=== PATIENT | male | born 1960 | race Hispanic/Latino ===

== ENCOUNTER 2018-03-05 23:45 | Emergency (ER) | payer OTHER ==
[~2018-03-05] VITALS: Ht 167.6 cm; Wt 75.0 kg
[2018-03-06 00:32] LABS: HEMATOCRIT 43.6 % (39.0-50.0); HEMOGLOBIN 15.5 g/dl (14.0-18.0); IMMATURE GRANULOCYTES 0.3 % (0.0-5.0); MEAN CELL VOLUME 87.7 fL CALC (80.0-100.0); MEAN CORPUSCULAR HGB 31.2 pG CALC (26.0-32.0); MEAN CORPUSCULAR HGB CONC 35.6 g/L CALC (32.0-36.0); PLATELET COUNT 205 thou/uL (130-400); RED BLOOD COUNT 4.97 mill/uL (4.70-6.10); RED CELL DISTRI WIDTH 12.2 % (11.5-15.5)
[2018-03-06 00:43] LABS: MANUAL DIFFERENTIAL YES
[2018-03-06 00:46] LABS: ALBUMIN 3.7 g/dL (3.2-5.0); ALKALINE PHOSPHATASE 69 u/l (38-126); ANION GAP 13 (6-22 (CALC)); BILIRUBIN, TOTAL 0.8 mg/dL (0.0-1.4); BUN 10 mg/dL (9-20); BUN/CREATININE RATIO 16 (12-20 (CALC)); CARBON DIOXIDE 26 mmol/l (22-30); CHLORIDE 96 mmol/l (95-108); CREATININE 0.6 mg/dL (0.7-1.3); GFR > 60 ML/MIN (>=60 (CALC)); GFR FOR AFR.AMER. > 60 ML/MIN (>=60 (CALC)); POTASSIUM 4.2 mmol/l (3.5-5.1); SGOT/AST 32 u/l (17-59); SODIUM 131 mmol/l (137-146); TOTAL PROTEIN 6.8 g/dL (6.3-8.2)
[2018-03-06 00:53] LABS: INFLUENZA A NONE DETECTED (NONE DETECT); INFLUENZA B NONE DETECTED (NONE DETECT)
[2018-03-06] MEDS ORDERED: CLARITHROMYC500 M2 PO (00:59)
[2018-03-06 01:22] VITALS: BP 119/73
== END 2018-03-06 01:22 | disposition home or self-care (01) | DRG 195 ==
LOC: ED 23:45
PROVIDERS: Family Medicine
DX: J18.9 Pneumonia, unspecified organism (principal); R50.9 Fever, unspecified

== ENCOUNTER 2018-03-09 14:46 | Inpatient (IN) | payer OTHER ==
[~2018-03-09] VITALS: Ht 167.6 cm; Wt 74.1 kg
[~2018-03-09 14:46] MED LIST: CLARITHROMYC500 M2 PO
--- NOTE | 2018-03-09 14:53 | NUR ---
AMBULATORY WITH STEADY GAIT TO ER ROOM 2, TO BED
--- NOTE | 2018-03-09 15:15 | NUR ---
Pt moved to room # 6 for higher level of care. Report to GUILLE Joshua
--- NOTE | 2018-03-09 15:20 | NUR ---
RECEIVED REPORT FROM SUSY ENAMORADO. INTRODUCED SELF TO PT AND PERFORMED ASSESSMENT. PT WARM TO TOUCH.
--- NOTE | 2018-03-09 15:54 | NUR ---
IV ABX AND IV FLUIDS INITIATED. TEMP RECHECK 102.5
[2018-03-09 15:57] LABS: HEMATOCRIT 41.3 % (39.0-50.0); HEMOGLOBIN 14.6 g/dl (14.0-18.0); IMMATURE GRANULOCYTES 1.5 % (0.0-5.0); MEAN CELL VOLUME 87.3 fL CALC (80.0-100.0); MEAN CORPUSCULAR HGB 30.9 pG CALC (26.0-32.0); MEAN CORPUSCULAR HGB CONC 35.4 g/L CALC (32.0-36.0); NEUT# 10.59 thou/uL (1.82-7.42); RED BLOOD COUNT 4.73 mill/uL (4.70-6.10)
[2018-03-09 16:17] LABS: INFLUENZA B NONE DETECTED (NONE DETECT)
[2018-03-09 16:19] LABS: ANION GAP 15 (6-22 (CALC)); BUN 10 mg/dL (9-20); BUN/CREATININE RATIO 17 (12-20 (CALC)); CARBON DIOXIDE 27 mmol/l (22-30); CHLORIDE 100 mmol/l (95-108); CREATININE 0.6 mg/dL (0.7-1.3); GFR > 60 ML/MIN (>=60 (CALC)); GFR FOR AFR.AMER. > 60 ML/MIN (>=60 (CALC)); POTASSIUM 4.5 mmol/l (3.5-5.1); SODIUM 137 mmol/l (137-146)
--- NOTE | 2018-03-09 16:50 | NUR ---
DR HAJI AT BEDSIDE TO DISCUSS RESULTS AND PLAN TO ADMIT
--- NOTE | 2018-03-09 17:45 | NUR ---
ATTEMPTED TO CALL REPORT, NURSE BUSY. SAVITA FERRER SAID SHE WOULD CALL BACK.
--- NOTE | 2018-03-09 18:15 | NUR ---
REPORT TO SUSY HUNTER AT [facility].
--- NOTE | 2018-03-09 18:15 | NUR ---
Admission Note Report Given to: SBAR PRINTED TO FLOOR Transported by: Wheelchair X Stretcher Transported with: X Nurse X Transporter X Patent IV O2 Dye Feeder
--- NOTE | 2018-03-09 18:17 | NUR ---
PT ARRIVED ON FLOOR AT 1816; VIA STRETCHER; ACCOMPANIED BY TWO STAFF MEMBERS; PT AMBULATED FROM STRETCHER TO DIGITAL STANDING SCALE WITH STEADY GAIT. WEIGHT OBTAINED; VITALS STABLE; O2 @ 3L; PT ORIENT TO ROOM AND CALL QUIROS SYSTEM; PT FAROESE SPEAKING, NODS HIS HEAD WHEN I SPEAK; NO S/S OF DISTRESS NOTED; AT BEDSIDE; I ASKED IF SHE WILL SPEND NIGHT AT HOSP OR GOING HOME, SHE POINTED TO THE COUCH. WILL GET HER BLANKETS AND A PILLOW.
--- NOTE | 2018-03-09 19:00 | NUR ---
RECEIVED REPORT FROM DAY NURSE. PT RESTING IN BED WITH AT BEDSIDE. PT IS ANGUILLAN SPEAKING ONLY. NO S/S OF DISTRESS NOTED. WILL CONTINUE TO MONITOR.
[2018-03-09 19:04] VITALS: BP 128/73
--- NOTE | 2018-03-09 20:10 | NUR ---
PT RESTING IN BED WITH AT BEDSIDE. PT IS CROATIAN SPEAKING ONLY AND SO IS THE . ASSESMENT COMPLETED AT THIS TIME(SEE INTERVENTIONS) LUNG SOUNDS CLEAR WITH DIMINISHED BASES, HEART SOUNDS NORMAL, BOWEL SOUNDS ACTIVE. NO EDEMA NOTED. #20 LAC FLUSHES WELL, NO SWELLING OR REDNESS. MANE STAFF MEMBER IN TO TRANSLATE AT THIS TIME. PT VOICING NO COMPLAINTS PLAN OF CARE DISCUSSED. PT APPRECIATIVE AND VERBALIZES UNDERSTANDING. CALL QUIROS IN REACH. WILL CONTINUE TO MONITOR.
--- NOTE | 2018-03-10 | NUR ---
PT RESTING IN BED WITH EYES CLOSED. AT BED SIDE. NO S/S OF DISTRESS. CALL QUIROS IN REACH. WILL CONTINUE TO MONITOR.
[2018-03-10 04:00] VITALS: BP 120/70
--- NOTE | 2018-03-10 04:00 | NUR ---
PT CONTINUES TO REST WITH EYS CLOSED. NO S/S OF DISTRESS NOTED. CALL QUIROS IN REACH. WILL CONTINUE TO MONITOR.
[2018-03-10 05:20] LABS: HEMATOCRIT 40.6 % (39.0-50.0); HEMOGLOBIN 13.9 g/dl (14.0-18.0); IMMATURE GRANULOCYTES 1.2 % (0.0-5.0); MEAN CELL VOLUME 89.4 fL CALC (80.0-100.0); MEAN CORPUSCULAR HGB 30.6 pG CALC (26.0-32.0); MEAN CORPUSCULAR HGB CONC 34.2 g/L CALC (32.0-36.0); NEUT# 10.62 thou/uL (1.82-7.42); RED BLOOD COUNT 4.54 mill/uL (4.70-6.10); RED CELL DISTRI WIDTH 12.3 % (11.5-15.5)
[2018-03-10 05:31] LABS: ALBUMIN 3.2 g/dL (3.2-5.0); ALKALINE PHOSPHATASE 64 u/l (38-126); ANION GAP 12 (6-22 (CALC)); BILIRUBIN, TOTAL 0.7 mg/dL (0.0-1.4); BUN 9 mg/dL (9-20); BUN/CREATININE RATIO 14 (12-20 (CALC)); CARBON DIOXIDE 26 mmol/l (22-30); CHLORIDE 105 mmol/l (95-108); CREATININE 0.6 mg/dL (0.7-1.3); GFR > 60 ML/MIN (>=60 (CALC)); GFR FOR AFR.AMER. > 60 ML/MIN (>=60 (CALC)); MAGNESIUM 1.9 mg/dL (1.6-2.3); POTASSIUM 4.5 mmol/l (3.5-5.1); SGOT/AST 20 u/l (17-59); SODIUM 138 mmol/l (137-146); TOTAL PROTEIN 6.4 g/dL (6.3-8.2)
[2018-03-10 08:33] VITALS: BP 116/68
[2018-03-10 10:17] LABS: URINE BILIRUBIN - DIPSTICK NEGATIVE (NEGATIVE); URINE BLOOD DIPSTICK NEGATIVE (NEGATIVE); URINE CLARITY CLEAR; URINE COLOR YELLOW; URINE GLUCOSE - DIPSTICK NEGATIVE (NEGATIVE); URINE KETONE 15 mg/dL (NEGATIVE); URINE LEUK ESTERASE NEGATIVE (NEGATIVE); URINE NITRITE - DIPSTICK NEGATIVE (Negative); URINE PROTEIN - DIPSTICK NEGATIVE (NEG-TRACE); URINE SPECIFIC GRAVITY >=1.030
--- NOTE | 2018-03-10 12:00 | NUR ---
OFF UNIT TO CT AFTER INFORMING OF PROCEDURE, RETURNED TO UNIT WITH CLEARING HAND AND SETTLED IN BED.
[2018-03-10 13:19] LABS: TSH, 3RD GENERATION 0.57 uIU/mL (0.47 - 4.68)
--- NOTE | 2018-03-10 16:00 | NUR ---
ALL NEEDS MET, SPOUSE SITTING IN ROOM.
[2018-03-10 16:53] VITALS: BP 139/73
[2018-03-10 19:20] VITALS: BP 149/73
--- NOTE | 2018-03-10 19:30 | NUR ---
PT IN BED UPRIGHT W/FAMILY AT BEDSIDE X6. V/S ASSESSED. NO S/S OF DISTRESS NOTED. CALL LIGHT W/IN REACH AND PT INSTRUCTED TO CALL IF ANY NEEDS ARISE.
--- NOTE | 2018-03-10 20:02 | NUR ---
PT RESTING QUIETLY IN BED. FAMILY AT BEDSIDE. ASSESMENT COMPLETED AT THIS TIME(SEE INTERVENTIONS) LUNG SOUNDS DIMINISHED IN THE BASES, HEART SOUNDS NORMAL, BOWEL SOUNDS ACTIVE, NO SWELLING OR EDEMA NOTED. #20 LAC FLUSHES WELL, NO SWELLING OR EDEMA NOTED. PTS NEEDS MET FAMILY MEMBER AT BEDSIDE TO TRANSLATE. OXEGEN @ 2L VIA NASAL CANULA. CALL QUIROS IN REACH. WILL CONTINUE TO MONITOR.
--- NOTE | 2018-03-10 23:29 | NUR ---
PT MEDICATED W/IV ANTIBIOTIC THERAPY AT THIS TIME. PT HAS DRY COUGH. AT BEDSIDE. NO S/S OF DISTRESS, PT ASISTED IN RAISING HOB FOR COUGH. DENIES ANY OTHER NEEDS AT THIS TIME. CALL LIGHT AT BEDSIDE AND LIGHTS TURNED BACK DOWN.
--- NOTE | 2018-03-11 04:00 | NUR ---
PT RESTING QUIETLY IN BED. AT BEDSIDE. NO S/S OF DISTRESS. O2 @ 2L. CALL QUIROS IN REACH. WILL CONTINUE TO MONITOR.
[2018-03-11 05:31] LABS: HEMATOCRIT 39.9 % (39.0-50.0); HEMOGLOBIN 13.8 g/dl (14.0-18.0); IMMATURE GRANULOCYTES 2.7 % (0.0-5.0); MEAN CELL VOLUME 88.7 fL CALC (80.0-100.0); MEAN CORPUSCULAR HGB 30.7 pG CALC (26.0-32.0); MEAN CORPUSCULAR HGB CONC 34.6 g/L CALC (32.0-36.0); NEUT# 12.03 thou/uL (1.82-7.42); RED BLOOD COUNT 4.5 mill/uL (4.70-6.10); RED CELL DISTRI WIDTH 12.4 % (11.5-15.5)
[2018-03-11 06:01] LABS: ALBUMIN 3.4 g/dL (3.2-5.0); ALKALINE PHOSPHATASE 73 u/l (38-126); ANION GAP 15 (6-22 (CALC)); BILIRUBIN, TOTAL 0.5 mg/dL (0.0-1.4); BUN 10 mg/dL (9-20); BUN/CREATININE RATIO 18 (12-20 (CALC)); CALCULATED LDLCHOLESTEROL 71 mg/dL (62-129 (CALC)); CARBON DIOXIDE 25 mmol/l (22-30); CHLORIDE 103 mmol/l (95-108); CHOLESTEROL HDL RATIO 4.1 (<4.4 (CALC)); CREATININE 0.6 mg/dL (0.7-1.3); GFR > 60 ML/MIN (>=60 (CALC)); GFR FOR AFR.AMER. > 60 ML/MIN (>=60 (CALC)); HDL CHOLESTEROL 28 mg/dL (>=40); POTASSIUM 4.6 mmol/l (3.5-5.1); SGOT/AST 19 u/l (17-59); SODIUM 139 mmol/l (137-146); TOTAL CHOLESTEROL 114 mg/dl (0-199); TOTAL PROTEIN 6.8 g/dL (6.3-8.2); TOTAL TRIGLYCERIDES 73 mg/dl (30-149); VLDL CHOLESTROL 15 mg/dl (8-62 (CALC))
--- NOTE | 2018-03-11 07:00 | NUR ---
SHIFT CHANGE REPORT FROM GERMAINE, PT AWAKE, ALERT AND ORIENTED SITTING UP AT BEDSIDE, REPORTED HE HAD CHEST PAIN THIS AM BUT DIDNT INFORM NURSE. THERE IS A LANGUAGE BARRIER AND ASSISTANT WAREHOUSE MANAGER WAS CALLED IN FOR ASSISTANCE, ADVISED/REMINDED TO USE CALL QUIROS FOR ASSISTANCE NEEDED, WILL CONTINUE TO MINITOR.
--- NOTE | 2018-03-11 13:12 | NUR ---
SITTING UP IN ROOM, EDUCATED ON DIABETES, FAMILY VISITING, ALL NEEDS ADDRESSED.
[2018-03-11 16:09] VITALS: BP 133/71
[2018-03-11 19:24] VITALS: BP 152/78
--- NOTE | 2018-03-11 20:03 | NUR ---
REPORT RECIEVED FROM OFF GOING NURSE. PT RESTING IN BED WITH EYES OPEN. FAMILY AT BEDSIDE. NO PAIN OR DISTRESS NOTED. POC DISCUSSED. PT VOICED UNDERSTADNING. BED IN LOWEST POSITION. CALL LIGHT WITHIN REACH. WILL MONITOR.
[2018-03-12 04:01] VITALS: BP 139/76
[2018-03-12 05:13] LABS: HEMOGLOBIN 13.4 g/dl (14.0-18.0); IMMATURE GRANULOCYTES 2.9 % (0.0-5.0); MEAN CELL VOLUME 89.2 fL CALC (80.0-100.0); MEAN CORPUSCULAR HGB 30.7 pG CALC (26.0-32.0); MEAN CORPUSCULAR HGB CONC 34.4 g/L CALC (32.0-36.0); NEUT# 16.85 thou/uL (1.82-7.42); RED BLOOD COUNT 4.37 mill/uL (4.70-6.10); RED CELL DISTRI WIDTH 12.6 % (11.5-15.5)
[2018-03-12 05:33] LABS: ALBUMIN 3.2 g/dL (3.2-5.0); ALKALINE PHOSPHATASE 76 u/l (38-126); ANION GAP 15 (6-22 (CALC)); BILIRUBIN, TOTAL 0.4 mg/dL (0.0-1.4); BUN 12 mg/dL (9-20); BUN/CREATININE RATIO 22 (12-20 (CALC)); CARBON DIOXIDE 27 mmol/l (22-30); CHLORIDE 100 mmol/l (95-108); CREATININE 0.6 mg/dL (0.7-1.3); GFR > 60 ML/MIN (>=60 (CALC)); GFR FOR AFR.AMER. > 60 ML/MIN (>=60 (CALC)); POTASSIUM 4.5 mmol/l (3.5-5.1); SGOT/AST 24 u/l (17-59); SODIUM 137 mmol/l (137-146); TOTAL PROTEIN 6.4 g/dL (6.3-8.2)
--- NOTE | 2018-03-12 06:49 | NUR ---
CRITICAL P02 OF [address] MANTILLA. NO ORDERS RECIEVED. PT O2 STAT 91%. PT NON LABORED BREATHING. O2 NC @2L. WILL MONITOR.
--- NOTE | 2018-03-12 07:00 | NUR ---
SHIFT CHANGE REPORT, PT AWAKE ALERT AND ORIENTED, NO C/O DISCOMFORT, CALL QUIROS IN REACH.
[2018-03-12 08:37] VITALS: BP 132/74
[2018-03-12 16:00] VITALS: BP 157/72
--- NOTE | 2018-03-12 16:13 | NUR ---
RELAXING IN BED, COMFORTABLE, ALL NEEDS MET.
[2018-03-12 18:58] VITALS: BP 138/75
[2018-03-13 04:30] VITALS: BP 149/77
[2018-03-13 05:33] LABS: HEMATOCRIT 43.1 % (39.0-50.0); HEMOGLOBIN 14.7 g/dl (14.0-18.0); IMMATURE GRANULOCYTES 4.7 % (0.0-5.0); MEAN CELL VOLUME 89.2 fL CALC (80.0-100.0); MEAN CORPUSCULAR HGB 30.4 pG CALC (26.0-32.0); MEAN CORPUSCULAR HGB CONC 34.1 g/L CALC (32.0-36.0); NEUT# 13.52 thou/uL (1.82-7.42); RED BLOOD COUNT 4.83 mill/uL (4.70-6.10); RED CELL DISTRI WIDTH 12.5 % (11.5-15.5)
[2018-03-13 05:58] LABS: ALBUMIN 3.5 g/dL (3.2-5.0); ALKALINE PHOSPHATASE 71 u/l (38-126); ANION GAP 16 (6-22 (CALC)); BILIRUBIN, TOTAL 0.6 mg/dL (0.0-1.4); BUN 15 mg/dL (9-20); BUN/CREATININE RATIO 25 (12-20 (CALC)); CARBON DIOXIDE 28 mmol/l (22-30); CHLORIDE 95 mmol/l (95-108); CREATININE 0.6 mg/dL (0.7-1.3); GFR > 60 ML/MIN (>=60 (CALC)); GFR FOR AFR.AMER. > 60 ML/MIN (>=60 (CALC)); MAGNESIUM 2.1 mg/dL (1.6-2.3); POTASSIUM 4.8 mmol/l (3.5-5.1); SGOT/AST 26 u/l (17-59); SODIUM 134 mmol/l (137-146); TOTAL PROTEIN 6.8 g/dL (6.3-8.2)
--- NOTE | 2018-03-13 07:21 | NUR ---
SHIFT REPORT, PT AWAKE ALETT AND ORIENTED, CONDITION IMPROVED.
[2018-03-13 07:57] VITALS: BP 109/69
--- NOTE | 2018-03-13 12:00 | NUR ---
ALL NEEDS MET.
[2018-03-13 15:20] VITALS: BP 141/82
--- NOTE | 2018-03-13 16:00 | NUR ---
FAMILY IN ROOM, ALL NEEDS MET.
--- NOTE | 2018-03-13 19:00 | NUR ---
RECIEVED REPORT FROM DAY SHIFT NURSE. PT SITTING IN CHAIR WATCHING TV. NO S/S OF DISTRESS AT THIS TIME. CALL QUIROS IN REACH. WILL CONTINUE TO MONITOR.
[2018-03-13 19:48] VITALS: BP 136/72
--- NOTE | 2018-03-13 20:09 | NUR ---
DR MANTILLA AWARE OF HIGH BLOOD SUGAR. NEW ORDERS RECEIVED.
--- NOTE | 2018-03-13 20:57 | NUR ---
PT MEDICATED PER NEW ORDER. SNACK PROVIED. PT NEEDS MET AT THIS TIME. WILL CONTINUE TO MONITOR.
--- NOTE | 2018-03-13 22:17 | NUR ---
PT IN BED AT THIS TIME. AT BEDSIDE. O2 @ 2L. ASSESMENT COMPLETED AT THIS TIME( SEE INTERVENTIONS). LUNG SOUNDS CLEAR, HEART SOUNDS NORMAL, HYPOACTIVE BOWEL SOUNDS. NO SWELLING OR EDEMA NOTED. #22 IN THE LAC FLUSHES WELL, NO REDNESS OR EDEMA NOTED. NO SLIP SOCKS APPILED FOR PT SAFTEY. BLOOD SUGAR CHECKED AT THIS TIME, WAS 434. PT NEEDS MET AT THIS TIME. CALL QUIROS IN REACH. WILL CONTINUE TO MONITOR.
--- NOTE | 2018-03-13 22:35 | NUR ---
ECHO IN WITH PT AT THIS TIME. IV DONE INFUSING, FLUSHED. NO REDNESS OR EDEMA.
--- NOTE | 2018-03-13 22:35 | NUR ---
COMMUNICATIONS COORDINATOR IN ROOM AT THIS TIME FOR ECHO.
--- NOTE | 2018-03-13 23:34 | NUR ---
MANDARIN TEACHER FINISHED AT THIS TIME. MEDS GIVEN ORDERED. PT VOICING NO COMPLAINTS AT THIS TIME. CALL QUIROS IN REACH. WILL CONTINUE TO MONITOR.
--- NOTE | 2018-03-14 | NUR ---
PT RESTING IN BED AT THIS TIME. AT BEDSIDE NO S/S OF DISTRESS NOTED. CALL QUIROS IN REACH. WILL CONTINUE TO MONITOR.
--- NOTE | 2018-03-14 04:00 | NUR ---
PT RESTING IN BED WITH EYES CLOSED. NO S/S OF DISTRESS. CALL QUIROS IN REACH. WILL CONTINUE TO MONITOR.
[2018-03-14 04:45] VITALS: BP 153/88
[2018-03-14 05:09] LABS: HEMATOCRIT 43.5 % (39.0-50.0); HEMOGLOBIN 14.8 g/dl (14.0-18.0); MEAN CELL VOLUME 89.7 fL CALC (80.0-100.0); MEAN CORPUSCULAR HGB 30.5 pG CALC (26.0-32.0); NEUT# 11.18 thou/uL (1.82-7.42); RED BLOOD COUNT 4.85 mill/uL (4.70-6.10); RED CELL DISTRI WIDTH 12.5 % (11.5-15.5)
[2018-03-14 05:34] LABS: ALBUMIN 3.5 g/dL (3.2-5.0); ALKALINE PHOSPHATASE 81 u/l (38-126); ANION GAP 14 (6-22 (CALC)); BILIRUBIN, TOTAL 0.5 mg/dL (0.0-1.4); BUN 16 mg/dL (9-20); BUN/CREATININE RATIO 27 (12-20 (CALC)); CARBON DIOXIDE 30 mmol/l (22-30); CHLORIDE 95 mmol/l (95-108); CREATININE 0.6 mg/dL (0.7-1.3); GFR > 60 ML/MIN (>=60 (CALC)); GFR FOR AFR.AMER. > 60 ML/MIN (>=60 (CALC)); MAGNESIUM 2.2 mg/dL (1.6-2.3); POTASSIUM 4.9 mmol/l (3.5-5.1); SGOT/AST 20 u/l (17-59); SODIUM 134 mmol/l (137-146); TOTAL PROTEIN 6.6 g/dL (6.3-8.2)
--- NOTE | 2018-03-14 08:30 | NUR ---
ASSESSMENT COMPLETED; PT A/O X3; RESP EVEN AND UNLABORED; NO S/S OF DISTRESS NOTED; IV SITE FLUSHED WITHOUT DIFFICULTY; SITE APPEARS HEALTHY; PT VOICED NO CONCERNS; CALL QUIROS IN REACH.
--- NOTE | 2018-03-14 11:10 | NUR ---
PT SITTING UP IN RECLINER, RESP EVEN AND UNLABORED; NO S/S OF DISTRESS NOTED; PT INDIPENDENT IN ROOM; CALL QUIROS IN REACH.
--- NOTE | 2018-03-14 14:19 | NUR ---
DR MANTILLA AT BEDSIDE TO DISCUSS POC.
[2018-03-14] MEDS ORDERED: DOXYCYCL HYC100 MG PO (15:01)
--- NOTE | 2018-03-14 15:41 | NUR ---
DC INSTRUCTIONS GIVEN BY KARINARN IN [place]; PT VERBALIZED UNDERSTANDING HAS NO QUESTIONS AT THIS TIME. IV REMOVED CATHETER INTACT; AT BEDSIDE.
[2018-03-14 15:51] VITALS: BP 118/71
--- NOTE | 2018-03-14 15:58 | NUR ---
pt. down via w/c accompanied by chayo chavarria.
== END 2018-03-14 15:57 | disposition home or self-care (01) | DRG 194 ==
LOC: ED 14:46 → ED-I 15:11 → ED 16:57 → MS2 16:58
PROVIDERS: Family Medicine; Nurse Practitioner Family; ADMIT Internal Medicine Nephrology; ATTEND Internal Medicine Nephrology
DX: J18.9 Pneumonia, unspecified organism (principal); E87.3 Alkalosis; E78.5 Hyperlipidemia, unspecified; D64.9 Anemia, unspecified; R73.9 Hyperglycemia, unspecified; T38.0X5A Adverse effect of glucocorticoids and synthetic analogues, initial encounter; Z23 Encounter for immunization
CPT/HCPCS: J1650; J1756; Q9967

== ENCOUNTER 2018-08-10 07:38 | Day surgery (SDC) | payer OTHER ==
[~2018-08-10 07:38] MED LIST changes: +BENZONATATE200 MG PO; +DOXYCYCL HYC100 MG PO; +METFORMIN500 MG PO
[2018-08-10 10:17] VITALS: BP 127/84
== END 2018-08-10 10:25 | disposition home or self-care (01) | DRG 951 ==
LOC: ENDO 07:38
PROVIDERS: ATTEND Surgery
PROC: 0DJD8ZZ Inspection of Lower Intestinal Tract, Via Natural or Artificial Opening Endoscopic (ICD-10-PCS; principal; 2018-08-10)
DX: Z12.11 Encounter for screening for malignant neoplasm of colon (principal); K64.8 Other hemorrhoids; E11.9 Type 2 diabetes mellitus without complications; Z79.84 Long term (current) use of oral hypoglycemic drugs